=== PATIENT | female | born 1925 | race Caucasian/White ===

== ENCOUNTER 2016-05-05 19:18 | Emergency (ER) | payer OTHER ==
--- NOTE | 2016-05-05 20:31 | DIAGNOSTIC IMAGING REPORT ---
PROCEDURE: CT HEAD WITHOUT CONTRAST INDICATION: Trauma with left orbital laceration, initial encounter TECHNIQUE: Noncontrast axial images with sagittal and coronal reformations. COMPARISON: None. FINDINGS: Moderate atrophy with mild white matter chronic ischemic changes. Normal ventricular system. No evidence of acute intracranial process. Visualized mastoids and sinuses are clear. IMPRESSION: 1. No acute intracranial abnormality 2. Moderate atrophy with mild white matter chronic ischemic changes 3. Findings discussed with Dr. Zavala at 08:30 p.m., [place] Standard Time
--- NOTE | 2016-05-05 20:39 | ED NURSING NOTES ---
Clinical Report - Nurses [facility] [address] [place] [place] [address] 05/05/2016 19:18 Patient: MEE MATOS TRIAGE Triage time 19:May 05 2016. Acuity: LEVEL 3. Chief Complaint: FALL while walking, onto the street and landed on their head; tripped. 19:31 05/05/16. SEPSIS SCREEN: Sepsis Screen: negative. Negative (no infection suspected/documented). ADARSH COMA SCORE: [place] Coma Scale: 15- eyes open spontaneously (4); best verbal response- oriented x 4 (5); best motor response- obeys commands (6). --19:31 Lisa Cleaning 19:22 05/05/16. BP: 182/78. HR: 77. RR: 20. O2 saturation: 100% on room air. Temp: 97.5 F (oral). Pain level now: 0/10. --19:31 Lisa Cleaning. Weight: 83.9 kg stated. Height/Length: 66 inches Per Patient. BMI: 29.9. --19:27 Lisa Cleaning. Medications Atorvastatin Calcium Oral. --19:29 Lisa Cleaning Glipizide Oral. --19:30 Lisa Cleaning Lisinopril Oral. --19:30 Lisa Cleaning ASA Oral. --19:30 Lisa Cleaning. Allergies No Known Drug Allergy. --19:30 Lisa Cleaning. Medication/allergy information source: the patient. --19:31 Lisa Cleaning. History Arrived by EMS. Historian: patient. Unaccompanied. Location of injuries: head and left hand. This occurred just prior to arrival. Occurred ([place]). ( Patient was walking in the parking lot at the [employer] and tripped on a curb. She hit the left side of her face and head, she has small laceration on her left brow. She has a small skin tear Left hand. She denies other injury. She uses ASA daily but no other blood thinners.). No loss of consciousness. 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 EMS treatment ARRANGING FUNERAL DIRECTOR verbally communicated and report reviewed. See report. BP: 176 / 76. HR: 67. O2 saturation: 95 % room air. ( BG 143). PAST MEDICAL HX: Tetanus status: up-to-date. Immunizations: up-to-date. The patient is post-menopausal. SOCIAL HX: Never smoker. Alcohol use; consumes one liquor drink daily. No drug use. No infectious disease exposure. ABUSE ASSESSMENT: No report of abuse. FALL RISK ASSESSMENT: Fall risk assessment completed. Risk factors identified include patient age greater than 65 years and history of fall. Fall interventions initiated. Patient placed on stretcher. Side rails up x1. Brakes on Bed in low position. Call light in reach of patient. Instructed not to get up without assistance. --19:31 Lisa Cleaning. PROBLEMS: Diabetes Mellitus. Hypertension. Hypercholesterolemia. --19:31 Lisa Cleaning. ADDITIONAL SURGERIES: Cholecystectomy. Tonsillectomy & Adenoidectomy. --19:31 Lisa Cleaning. Interventions ID band on patient. To treatment room. --19:31 Lsia Cleaning. PHYSICAL ASSESSMENT Patient gowned. GENERAL / NEURO / PSYCH: Alert. Oriented X 4. Appears in no acute distress. HEENT: Pupils equal, round and reactive to light. Left eyebrow area: subcutaneous laceration with controlled bleeding. RESPIRATORY: Respirations not labored. CVS: Normal heart rate and rhythm. GI / : Abdomen soft and nontender. EXTREMITIES: Extremities exhibit normal ROM. Left little finger: (skin tear). SKIN: Skin is warm and dry. --19:32 Lisa Cleaning. NURSING PROGRESS NOTES Pulse oximeter and NIBP monitor placed on patient; monitor alarms on. Patient gowned. Warming measures: blanket applied. Reassurance given to the patient. Two patient identifiers checked. Call light placed in reach. Side rails up x 1. Bed placed in lowest position. Brakes of bed on. Patient ready for evaluation- chart flagged and ED physician notified. --19:33 Lisa Cleaning Patient transported to CT by stretcher with tech. --20:00 Lisa Cleaning Patient returned from CT by stretcher with tech. (20:10 May 05 2016). --20:10 Lisa Cleaning 20:22 05/05/16. BP: 177/64. HR: 51. O2 saturation: 95% on room air. --20:23 Lisa Cleaning. DISPOSITION / DISCHARGE 20:46 05/05/16. Condition at departure: stable. No learning barriers present. Discharge instructions provided and reviewed with the patient. Reviewed wound care instructions. Patient verbalized understanding. Written instructions provided in French. ( Follow up with your doctor in two days.). The patient was discharged by the physician. She was discharged home and unaccompanied at time of discharge. She left the Emergency Department ambulatory and via taxi. Driving (Taxi). ( Wounds cleansed and covered with band aid.). --21:07 Lisa Cleaning 20:45 05/05/16. BP: 168/64. HR: 50. RR: 18. O2 saturation: 95% on room air. Temp: 98 F (oral). Pain level now: 05/18. --21:07 Lisa Cleaning. Locked/Released at 05/06/2016 2:30 by Lisa Cleaning,
--- NOTE | 2016-05-05 20:39 | ED NURSING NOTES ---
Clinical Report - Nurses [facility] [address] [place] [address] 05/05/2016 19:18 Patient: MEE MATOS TRIAGE Triage time 19:May 05 2016. Acuity: LEVEL 3. Chief Complaint: FALL while walking, onto the street and landed on their head; tripped. 19:31 05/05/16. SEPSIS SCREEN: Sepsis Screen: negative. Negative (no infection suspected/documented). ADARSH COMA SCORE: [place] Coma Scale: 15- eyes open spontaneously (4); best verbal response- oriented x 4 (5); best motor response- obeys commands (6). --19:31 Lisa Cleaning 19:22 05/05/16. BP: 182/78. HR: 77. RR: 20. O2 saturation: 100% on room air. Temp: 97.5 F (oral). Pain level now: 0/10. --19:31 Lisa Cleaning. Weight: 83.9 kg stated. Height/Length: 66 inches Per Patient. BMI: 29.9. --19:27 Lisa Cleaning. Medications Atorvastatin Calcium Oral. --19:29 Lisa Cleaning Glipizide Oral. --19:30 Lisa Cleaning Lisinopril Oral. --19:30 Lisa Cleaning ASA Oral. --19:30 Lisa Cleaning. Allergies No Known Drug Allergy. --19:30 Lisa Cleaning. Medication/allergy information source: the patient. --19:31 Lisa Cleaning. History Arrived by EMS. Historian: patient. Unaccompanied. Location of injuries: head and left hand. This occurred just prior to arrival. Occurred ([employer]). ( Patient was walking in the parking lot at the [employer] and tripped on a curb. She hit the left side of her face and head, she has small laceration on her left brow. She has a small skin tear Left hand. She denies other injury. She uses ASA daily but no other blood thinners.). No loss of consciousness. Treatment ROUSTABOUT: See EMS report. EMS treatment ROUSTABOUT verbally communicated and report reviewed. See report. BP: 176 / 76. HR: 67. O2 saturation: 95 % room air. ( BG 143). PAST MEDICAL HX: Tetanus status: up-to-date. Immunizations: up-to-date. The patient is post-menopausal. SOCIAL HX: Never smoker. Alcohol use; consumes one liquor drink daily. No drug use. No infectious disease exposure. ABUSE ASSESSMENT: No report of abuse. FALL RISK ASSESSMENT: Fall risk assessment completed. Risk factors identified include patient age greater than 65 years and history of fall. Fall interventions initiated. Patient placed on stretcher. Side rails up x1. Brakes on Bed in low position. Call light in reach of patient. Instructed not to get up without assistance. --19:31 Lisa Cleaning. PROBLEMS: Diabetes Mellitus. Hypertension. Hypercholesterolemia. --19:31 Lisa Cleaning. ADDITIONAL SURGERIES: Cholecystectomy. Tonsillectomy & Adenoidectomy. --19:31 Lisa Cleaning. Interventions ID band on patient. To treatment room. --19:31 Lisa Cleaning. PHYSICAL ASSESSMENT Patient gowned. GENERAL / NEURO / PSYCH: Alert. Oriented X 4. Appears in no acute distress. HEENT: Pupils equal, round and reactive to light. Left eyebrow area: subcutaneous laceration with controlled bleeding. RESPIRATORY: Respirations not labored. CVS: Normal heart rate and rhythm. GI / : Abdomen soft and nontender. EXTREMITIES: Extremities exhibit normal ROM. Left little finger: (skin tear). SKIN: Skin is warm and dry. --19:32 Lisa Cleaning. NURSING PROGRESS NOTES Pulse oximeter and NIBP monitor placed on patient; monitor alarms on. Patient gowned. Warming measures: blanket applied. Reassurance given to the patient. Two patient identifiers checked. Call light placed in reach. Side rails up x 1. Bed placed in lowest position. Brakes of bed on. Patient ready for evaluation- chart flagged and ED physician notified. --19:33 Lisa Cleaning Patient transported to CT by stretcher with tech. --20:00 Lisa Cleaning Patient returned from CT by stretcher with tech. (20:10 May 05 2016). --20:10 Lisa Cleaning 20:22 05/05/16. BP: 177/64. HR: 51. O2 saturation: 95% on room air. --20:23 Lisa Cleaning. DISPOSITION / DISCHARGE 20:46 05/05/16. Condition at departure: stable. No learning barriers present. Discharge instructions provided and reviewed with the patient. Reviewed wound care instructions. Patient verbalized understanding. Written instructions provided in Tongan. ( Follow up with your doctor in two days.). The patient was discharged by the physician. She was discharged home and unaccompanied at time of discharge. She left the Emergency Department ambulatory and via taxi. Driving (Taxi). ( Wounds cleansed and covered with band aid.). --21:07 Lisa Cleaning 20:45 05/05/16. BP: 168/64. HR: 50. RR: 18. O2 saturation: 95% on room air. Temp: 98 F (oral). Pain level now: 05/18. --21:07 Lisa Cleaning. Locked/Released at 05/06/2016 2:30 by Lisa Cleaning,
--- NOTE | 2016-05-05 20:39 | ED ORDER SUMMARY ---
..... Patient: MEE MATOS OrderSheet [facility] VisitID: [id number] [address] [place] [address] 89y, F Registration Date/Time: 05/05/2016 ORDER SHEET Weight: 83.9 kg (stated) Allergies: No Known Drug Allergy GENERAL ORDERS: CT Head wo Cont Urgent (19:37 05/05/2016 Talia TOVAR) (Ack 19:54 LTapper) (20:06 RFay) MEDICATION ORDERS: IV FLUIDS: ORDER SHEET NOTES: [Electronically signed by Regulo Zavala DO (22:41 05/05/2016)] [Electronically signed by Lisa Cleaning (02:30 05/06/2016)] [Electronically locked/signed by Lisa Cleaning (02:30 05/06/2016)]
--- NOTE | 2016-05-05 20:39 | ED ORDER SUMMARY ---
..... Patient: MEE MATOS OrderSheet [facility] VisitID: [id number] [address] [place] [address] 89y, F Registration Date/Time: 05/05/2016 ORDER SHEET Weight: 83.9 kg (stated) Allergies: No Known Drug Allergy GENERAL ORDERS: CT Head wo Cont Urgent (19:37 05/05/2016 Talia TOVAR) (Ack 19:54 LTapper) (20:06 RFay) MEDICATION ORDERS: IV FLUIDS: ORDER SHEET NOTES: [Electronically signed by Regulo Zavala DO (22:41 05/05/2016)] [Electronically signed by Lisa Cleaning (02:30 05/06/2016)] [Electronically locked/signed by Lisa Cleaning (02:30 05/06/2016)]
--- NOTE | 2016-05-05 20:39 | ED CLINICAL REPORT ---
Clinical Report - Physicians/[facility] [address] [place] [address] 05/05/2016 19:18 Patient: MEE MATOS Time Seen: 19:27. Arrived- By ambulance. Historian- patient and EMS personnel. HISTORY OF PRESENT ILLNESS Location of injuries- head and face. Chief Complaint: INJURY TO HEAD and INJURY TO FACE. The injury occurred just prior to arrival. [place] Fell while walking and landed on the street; tripped. The patient complains of moderate pain. The patient sustained a blow to the head. No neck pain or loss of consciousness. (Patient was walking [place] the [place] and tripped on a curb. She hit the left side of her face and head, she has small laceration on her left brow. She has a small skin tear Left hand. She denies other injury. She uses ASA daily but no other blood thinners.). No loss of consciousness.). REVIEW OF SYSTEMS No numbness, nausea, chest pain, weakness or loss of vision. No vomiting, difficulty breathing or fever. She sustained skin laceration. Has not recently been ill. PAST HISTORY See nurses notes. Hypertension. Type II diabetes mellitus treated with oral med. Tetanus immunization status is up-to-date. Hyperlipidemia. Surgeries: Adenoidectomy. Cholecystectomy. Tonsillectomy. SOCIAL HISTORY Never smoker. Occasional alcohol use. No drug use. ADDITIONAL NOTES The nursing notes have been reviewed. PHYSICAL EXAM Vital Signs: 05/05/2016 19:22 BP: 182/78. HR: 77. RR: 20. O2 saturation: 100%. Temp: 97.5 F. Pain level now: 0/10. Appearance: Alert. Anxious. Patient in mild distress. Head: No Grey's sign or raccoon eyes. Forehead: moderate tenderness, mild swelling, 1.5 cm laceration and small ecchymosis of the lower left side of the forehead. SEE LACERATION PROCEDURE NOTE #1. No foreign body or deformity. Eyes: EOM intact. ENT: No dental injury. Pharynx normal. Nose: mild tenderness. No deformity over the nose. No epistaxis or septal hematoma. Neck: Painless ROM. Neck non-tender. CVS: Pulses normal. Respiratory: Breath sounds normal. Chest nontender. Abdomen: Soft and nontender. Back: No tenderness. ROM normal. No vertebral point tenderness. Skin: Skin not intact. Skin warm and dry. Normal skin color. Normal skin turgor. (left forehead laceration and left small finger laceration). Extremities: No bony tenderness. Left hand: mild tenderness and 0.5 cm laceration. SEE LACERATION PROCEDURE NOTE #2. Neurovascular intact distally. (small finger). No deformity. Pelvis stable. Neuro: Oriented X 3. Mood/affect normal. Speech normal. No motor deficit. No sensory deficit. LABS, X-RAYS, AND EKG CT Head: No bony abnormalities, no hemorrhage, no intracranial mass, no midline shift and no hydrocephalus. There is atrophy is present. Head CT performed without contrast. The study was independently viewed by me, interpreted by the radiologist and discussed with the radiologist. PROGRESS AND PROCEDURES Laceration Repair: Location: forehead. Length: 1.5cm. Complexity: simple (closed with tissue adhesive). Exam note: superficial. Distal neuro/vascular/tendon status normal. Wound explored, cleansed and examined to the base in bloodless field. Closure of skin. Skin adhesive used. Post-procedure: she is stable and there are no complications. Bleeding is controlled and neuro-vascular status is intact distal to the wound. Dressing applied. Laceration Repair #2: Location: left little finger. Length: 1.0cm. Complexity: simple (closed with tissue adhesive). Exam note: superficial. Distal neuro/vascular/tendon status normal. No sensory deficit, motor deficit or vascular deficit distally. No tendon deficit or laceration. Wound explored and cleansed. Closure of skin. Skin adhesive used. Post-procedure: she is stable and there are no complications. Bleeding is controlled and neuro-vascular status is intact distal to the wound. Dressing applied. Course of Care: Clear mechanical trip and fall. No signs of serious injury now. Discussed closure options with pt and she prefers wound adhesive. Patient/family counseled. Disposition: Discharged. Condition: stable and improved. CLINICAL IMPRESSION Single superficial laceration to the forehead and left little finger.No foreign body present or left fingernail injury. Contusion to the forehead and nose. Fall on same level by tripping. INSTRUCTIONS Apply ice. Protect wound and keep wound area clean. Elevate affected areas above chest level. Warnings: GENERAL WARNINGS: Return or contact your physician immediately if your condition worsens or changes unexpectedly, if not improving as expected, or if other problems arise. Your Current Medications: CONTINUE TAKING THE FOLLOWING MEDICATIONS: ASA Oral. Atorvastatin Calcium Oral. Glipizide Oral. Lisinopril Oral. OTC Medications: Acetaminophen (available over the counter): take according to label instructions. Follow-up: Follow up with your doctor in two days. (Electronically signed by Regulo Zavala DO 05/05/2016 22:41)
--- NOTE | 2016-05-06 02:30 | ED DISCHARGE INSTRUCTIONS ---
Patient: MEE MATOS General Instructions [facility] VisitID: [id number] [place] [address] 89y, F Registration Date/Time: 05/05/2016 Single superficial laceration to the forehead and left little finger.No foreign body present or left fingernail injury. Contusion to the forehead and nose. Fall on same level by tripping. INSTRUCTIONS Apply ice. Protect wound and keep wound area clean. Elevate affected areas above chest level. Warnings: GENERAL WARNINGS: Return or contact your physician immediately if your condition worsens or changes unexpectedly, if not improving as expected, or if other problems arise. Your Current Medications: CONTINUE TAKING THE FOLLOWING MEDICATIONS: ASA Oral. Atorvastatin Calcium Oral. Glipizide Oral. Lisinopril Oral. OTC Medications: Acetaminophen (available over the counter): take according to label instructions. Follow-up: Follow up with your doctor in two days. ADDITIONAL INFORMATION Mechanical Fall You have had a fall today. It appears that the cause is mechanical. That means that you slipped, tripped or lost your balance. If your fall had been due to fainting or a seizure, further tests would be required. Home Care: Rest today and resume your normal activities when you are feeling back to normal. If you were injured during the fall, follow the advice from your doctor regarding care of your injury. You may use acetaminophen (Tylenol) or ibuprofen (Motrin, Advil) to control pain, unless another pain medicine was prescribed. [NOTE: If you have chronic liver or kidney disease or ever had a stomach ulcer or GI bleeding, talk with your doctor before using these medicines.] Fall Prevention: Was there anything that caused your fall that can be fixed, removed, or replaced? Make your home safe by keeping walkways clear of objects you may trip over. Use non-slip pads under rugs. Do not walk in poorly lit areas. Do not stand on chairs or wobbly ladders. Use caution when reaching overhead or looking upward. This position can cause a loss of balance. Be sure your shoes fit properly, have non-slip bottoms and are in good condition. Be cautious when going up and down curbs, and walking on uneven sidewalks. If your balance is poor, consider using a cane or walker. Stay as active as you can. Balance, flexibility, strength, and endurance all come from exercise. They all play a role in preventing falls. Follow Up with your doctor or as advised by our staff. Get Prompt Medical Attention if any of the following occur: Repeated mechanical falls, or unexplained falls Dizziness, fainting or seizure Severe headache Chest pain or shortness of breath Palpitations (very rapid or very slow or irregular heartbeat) Blood in vomit, stools (black or red color) Weakness of an arm or leg or one side of the face Difficulty with speech or vision Laceration, Face(Skin Glue) A laceration is a cut through the skin. A laceration on your face hasbeen closed with a type of skin glue. Home Care Medications: Acetaminophen (Tylenol) or ibuprofen (Motrin, Advil) may be taken for pain, unless another pain medicine was prescribed. NOTE: If you have chronic liver or kidney disease or ever had a stomach ulcer or GI bleeding, talk with your doctor before using these medications. General Care: Keep the wound clean and dry. You may shower or bathe as usual, but do not use soaps, lotions, or ointments on the wound area. Do not scrub the wound. After bathing, pat the wound dry with a soft towel. Do not scratch, rub, or pick at the film. Do not place tape directly over the film. Do not apply liquids (such as peroxide), ointments, or creams to the wound while the film is in place. Most facialskin wounds heal without problems. However, an infection sometimes occurs despite proper treatment. Therefore, watch for the signs of infection listed below. Follow Up as directed by the doctor or our staff. The skin glue film will fall off naturally in 5 to 10 days. Get Prompt Medical Attention if any of the following occur: Signs of infection: Fever of 100.4F (38C) or higher, or as directed by your healthcare provider Increasing pain in the wound Increasing redness or swelling Pus coming from the wound Wound bleeds more than a small amount or bleeding doesnt stop Wound edges come apart Laceration(Skin Glue) A laceration is a cut through the skin. You have a laceration that has been closed with a type of skin glue. Home Care Medications: Acetaminophen (Tylenol) or ibuprofen (Motrin, Advil) may be taken for pain, unless another pain medicine was prescribed. NOTE: If you have chronic liver or kidney disease or ever had a stomach ulcer or GI bleeding, talk with your doctor before using these medications. General Care: Keep the wound clean and dry. You may shower or bathe as usual, but do not use soaps, lotions, or ointments on the wound area. Do not scrub the wound. After bathing, pat the wound dry with a soft towel. If a bandage was applied and it becomes wet or dirty, replace it. Otherwise, change the bandage every 24 hours. Do not scratch, rub, or pick at the film. Do not place tape directly over the film. Do not apply liquids (such as peroxide), ointments, or creams to the wound while the film is in place. Most skin wounds heal without problems. However, an infection sometimes occurs despite proper treatment. Therefore, watch for the signs of infection listed below. Follow Up as directed by the doctor or our staff. The skin glue film will fall off naturally in 5 to 10 days. Get Prompt Medical Attention if any of the following occur: Signs of infection: Fever of 100.4F (38C) or higher, or as directed by your healthcare provider Increasing pain in the wound Increasing redness or swelling Pus coming from the wound Wound bleeds more than a small amount or bleeding doesnt stop Wound edges come apart You feel numbness or weakness in the wound area that doesnt go away Facial Contusion (No Wake-Up) A facial contusion is a bruise with swelling and sometimes bleeding under the skin. The swelling should start to go down within two days. Although there may be no signs of a serious injury at this time, symptoms may appear later which could be a sign of a more serious problem. Therefore, watch for the warning signs below. Home care The following guidelines will help you care for your injury at home: If you have swelling of the face, apply an ice pack (ice cubes in a plastic bag, wrapped in a towel) for 20 minutes every 12 hours until the swelling starts to go down. If you have scrapes or cuts on your face, clean them daily with soap and water. Apply an antibiotic ointment or cream for the first few days to prevent infection. You may use acetaminophen or ibuprofen to control pain, unless another pain medicine was prescribed.If you have chronic liver or kidney disease or ever had a stomach ulcer or GI bleeding, talk with your doctor before using these medicines. Do not use ibuprofen in children under six months of age. For the next 24 hours: Do not take alcohol, sedatives or medicines that make you sleepy. Do not drive or operate machinery. Avoid strenuous activities. No lifting or straining. If you have had any symptoms of aconcussiontoday (nausea, vomiting, dizziness, confusion, headache, memory loss or if you were knocked out), do not return to sports or any activity that could result in another head injury until all symptoms are gone and you have been cleared by your doctor. A second head injury before fully recovering from the first one can lead to serious brain injury. Follow-up care Follow up with your doctor in one week or as directed. Note: Any X-rays or CT scans taken will be reviewed by a radiologist. You will be notified of any new findings that may affect your care. When to seek medical care Get prompt medical attention if any of the following occur: Repeated vomiting Severe or worsening headache or dizziness Unusual drowsiness, or unable to awaken as usual Confusion or change in behavior or speech, memory loss, blurred vision Convulsion (seizure) Increasing scalp or face swelling Redness, warmth or pus from the swollen area Fluid drainage or bleeding from the nose or ears Fever of 100.4F (38C) or higher, or as directed by your health care provider Increasing jaw pain with chewing or increasing pain in the sinuses Nose looks crooked or cannot breathe through your nose after swelling goes down Nasal Contusion You have a contusion (bruising) of the nose. There appears to be no broken bones. A contusion may cause pain, swelling, stuffiness of the nose and sometimes bleeding. Home Care: 1) Apply an ice pack to the nose for 10 minutes every 2 hours during the first 24 hours to reduce pain and swelling. Continue this four times a day for the next two days. 2) You may use acetaminophen (Tylenol) or ibuprofen (Motrin, Advil) to control pain, unless another medicine was prescribed. [ NOTE : If you have chronic liver or kidney disease or ever had a stomach ulcer or GI bleeding, talk with your doctor before using these medicines.] Talk to your doctor if you are taking aspirin or blood thinners (coumadin). These will promote nose bleeding. Your dose may need to be adjusted. 3) Avoid blowing your nose for the first two days. Then, do so gently so you don't cause bleeding. 4) Avoid alcohol and hot liquids for the next two days. Alcohol or hot liquids in your mouth can dilate blood vessels in your nose and cause bleeding. Follow Up with your doctor or as advised by our staff. If your nose appears crooked , when the swelling goes down, contact an ENT doctor (nose specialist) for an appointment within seven days of injury. [NOTE: If X-rays were taken, they will be reviewed by a radiologist. You will be notified of any new findings that may affect your care.] Get Prompt Medical Attention if any of the following occur: Bleeding from the nose that is not controlled by pinching the nostrils together for 15 minutes Increasing facial swelling, pain or redness Fever of 100.4F (38C) Unable to breathe from both sides of the nose after swelling goes down Sinus pain Repeated vomiting Severe or worsening headache or dizziness Unusual drowsiness, or unable to awaken as usual Confusion or change in behavior or speech Convulsion (seizure) Laceration: Will There Be A Scar? A laceration is a cut through one or more layers of the skin. The goal of emergency treatment is to clean the wound and close it to prevent infection, control bleeding and speed healing. Cuts heal because the body is able to repair the skin by "sealing" the edges together with collagen, a kind of "skin cement." How deep your cut is, its location on your body, your age and the way your skin heals all determine how visible the final scar will be. Some persons tend to heal with more scar tissue than others. This cut will probably heal similar to other cuts you have had in the past. What You Can Do: There are a few simple things that you can do to limit the amount of scar that forms: 1) PREVENT INFECTION: An infected wound makes a bigger scar. Keep the wound clean and dry. Change the dressing and apply any ointment/cream as directed. 2) MASSAGE THE WOUND:After the stitches have been removed: Use a moisturizing cream or lotion containing Aloe or Vitamin E Oil and gently massage the skin around the wound with your fingertips (wash your hands first!). Do this twice a day for the first two weeks, then once a day for a month. This will increase the flow of oxygen and blood to the wound and prevent excess scar tissue from building up. 3) AVOID SUN EXPOSURE: During the first six months, avoid sun exposure since the scar may chance a much darker color than the skin around it. When in the sun, use SPF #50 (or greater) sun block on the scar, or cover the area with a hat or clothing. What To Expect: -- The cut will be sealed within 2 days and will be strong within 5-10 days. However, it will take at least SIX MONTHS for it to be fully healed. -- During the FIRST THREE MONTHS, you may notice the scar line getting more red or purple in color. The scar may become raised. The skin around the wound may feel thick and lumpy. -- During the FOURTH TO SIXTH MONTHS, this process begins to reverse. The red and purple color will fade, the scar line flattens, and the skin around it feels more normal. -- In most cases, the way the scar line looks after six months is the way it will remain, although there may be some continued improvement up to one year after the injury. Is There Anything Else That Can Be Done? If you do not like the way the scar looks after six months, a plastic surgeon may be able to perform a "scar revision." If you have any questions or problems as your wound heals, contact your doctor or this facility. We will be glad to assist you. Acetaminophen Oral tablet What is this medicine? ACETAMINOPHEN (a set a DARIA jabier fen) is a pain reliever. It is used to treat mild pain and fever. How should I use this medicine? Take this medicine by mouth with a glass of water. Follow the directions on the package or prescription label. Take your medicine at regular intervals. Do not take your medicine more often than directed. Talk to your hoister regarding the use of this medicine in children. While this drug may be prescribed for children as young as 6 years of age for selected conditions, precautions do apply. What side effects may I notice from receiving this medicine? Side effects that you should report to your doctor or health health care coordinator as soon as possible: allergic reactions like skin rash, itching or hives, swelling of the face, lips, or tongue breathing problems fever or sore throat redness, blistering, peeling or loosening of the skin, including inside the mouth trouble passing urine or change in the amount of urine unusual bleeding or bruising unusually weak or tired yellowing of the eyes or skin Side effects that usually do not require medical attention (report to your doctor or health health care coordinator if they continue or are bothersome): headache nausea, stomach upset What may interact with this medicine? alcohol imatinib isoniazid other medicines with acetaminophen What if I miss a dose? If you miss a dose, take it as soon as you can. If it is almost time for your next dose, take only that dose. Do not take double or extra doses. Where should I keep my medicine? Keep out of reach of children. Store at room temperature between 20 and 25 degrees C (68 and 77 degrees F). Protect from moisture and heat. Throw away any unused medicine after the expiration date. What should I tell my health care provider before I take this medicine? They need to know if you have any of these conditions: if you frequently drink alcohol containing drinks liver disease an unusual or allergic reaction to acetaminophen, other medicines, foods, dyes or preservatives or trying to get breast-feeding What should I watch for while using this medicine? Tell your doctor or health health care coordinator if the pain lasts more than 10 days (5 days for children), if it gets worse, or if there is a new or different kind of pain. Also, check with your doctor if a fever lasts for more than 3 days. Do not take other medicines that contain acetaminophen with this medicine. Always read labels carefully. If you have questions, ask your doctor or pharmacist. If you take too much acetaminophen get medical help right away. Too much acetaminophen can be very dangerous and cause liver damage. Even if you do not have symptoms, it is important to get help right away. You have been given the following additional information: Fall, Mechanical Laceration, Face (Skin Glue) Laceration, Extremity (Skin Glue) Facial Contusion, No Wakeup Nasal Contusion Laceration, How To Minimize Scar Acetaminophen Oral tablet (Electronically signed by Regulo Zavala DO 05/05/2016 22:41)
--- NOTE | 2016-05-06 02:30 | ED MAR SUMMARY ---
..... Medication Administration Record [facility] [address] [place], [place] [id number] Patient: MEE MATOS Visit ID: [id number] 89y, F Weight: 83.9 kg Height/Length: 66 in BMI: 29.9 ALLERGIES: No Known Drug Allergy
--- NOTE | 2016-05-06 02:30 | ED MAR SUMMARY ---
..... Medication Administration Record [facility] [address] [place], [place] [id number] Patient: MEE MATOS Visit ID: [id number] 89y, F Weight: 83.9 kg Height/Length: 66 in BMI: 29.9 ALLERGIES: No Known Drug Allergy
--- NOTE | 2016-05-06 02:30 | ED MED RECONCILIATION SUMMARY ---
Patient: MEE MATOS Medication Reconciliation Report [facility] VisitID: [id number] [address] [place] [address] 89y, F Registration Date/Time: 05/05/2016 Weight: 83.9 kg Height/Length: 66 in. BMI: 29.9 ALLERGIES: No Known Drug Allergy The patient's Home Medications are listed below: CONTINUE TAKING THE FOLLOWING MEDICATIONS: ASA Oral Atorvastatin Calcium Oral Glipizide Oral Lisinopril Oral The source(s) of the original Home Medication information: patient The following Medications were given to the patient in the Emergency Department: None. The following Medications were prescribed to the patient: Acetaminophen (available over the counter): take according to label instructions. -- Regulo Zavala, DO
--- NOTE | 2016-05-06 02:30 | ED MED RECONCILIATION SUMMARY ---
Patient: MEE MATOS Medication Reconciliation Report [facility] VisitID: [id number] [address] [place] [address] 89y, F Registration Date/Time: 05/05/2016 Weight: 83.9 kg Height/Length: 66 in. BMI: 29.9 ALLERGIES: No Known Drug Allergy The patient's Home Medications are listed below: CONTINUE TAKING THE FOLLOWING MEDICATIONS: ASA Oral Atorvastatin Calcium Oral Glipizide Oral Lisinopril Oral The source(s) of the original Home Medication information: patient The following Medications were given to the patient in the Emergency Department: None. The following Medications were prescribed to the patient: Acetaminophen (available over the counter): take according to label instructions. -- Regulo Zavala, DO
== END 2016-05-05 20:46 | disposition home or self-care (01) ==
LOC: ED SRH 19:18
DX: S61.217A Laceration without foreign body of left little finger without damage to nail, initial encounter (principal); S00.83XA Contusion of other part of head, initial encounter; S00.33XA Contusion of nose, initial encounter; I10 Essential (primary) hypertension; E11.9 Type 2 diabetes mellitus without complications; W10.1XXA Fall (on)(from) sidewalk curb, initial encounter; Y92.59 Other trade areas as the place of occurrence of the external cause; Y99.9 Unspecified external cause status; Y93.9 Activity, unspecified
CPT/HCPCS: 82708